=== PATIENT | male | born 1955 | race Caucasian/White ===

== ENCOUNTER 2016-07-17 14:47 | Emergency (ER) | payer OTHER ==
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
[~2016-07-17 14:47] MED LIST: EC-NAPROSYN500 MG PO; KROGER PHARMACY; LEVOFLOXACIN1 GM PO; NAPROXEN PO; NO MEDICATIONS
[2016-07-17] MEDS ORDERED: FLEXERIL10 MG PO (15:45)
[2016-07-17] MEDS ORDERED: MOTRIN600 M2 PO (15:45)
[2016-07-17 15:51] LABS: POC - CKMB <1.0 ng/mL (0.0-7.9)
[2016-07-17 15:52] LABS: POC - TROPONIN <0.05 ng/mL (<=0.05)
== END 2016-07-17 15:52 | disposition home or self-care (01) ==
LOC: SED 14:47
PROVIDERS: Emergency Medicine
DX: S20.219A Contusion of unspecified front wall of thorax, initial encounter (principal); S00.01XA Abrasion of scalp, initial encounter; Z90.49 Acquired absence of other specified parts of digestive tract; Z88.5 Allergy status to narcotic agent; Z79.899 Other long term (current) drug therapy; V43.92XA Unspecified car occupant injured in collision with other type car in traffic accident, initial encounter; Y93.89 Activity, other specified; Y92.410 Unspecified street and highway as the place of occurrence of the external cause
CPT/HCPCS: 71020; 82553; 84484; 96372; 99284; J1885